=== PATIENT | male | born 1960 | race Caucasian/White ===

== ENCOUNTER → 2017-02-06 | Outpatient (CLI) | payer OTHER | LOC: KOH-I 12:45 | DX: M48.02 Spinal stenosis, cervical region (principal); M50.220 Other cervical disc displacement, mid-cervical region, unspecified level; M50.321 Other cervical disc degeneration at C4-C5 level; M47.812 Spondylosis without myelopathy or radiculopathy, cervical region; M99.51 Intervertebral disc stenosis of neural canal of cervical region | CPT/HCPCS: 72141 ==